=== PATIENT | male | born 1980 | race Caucasian/White ===

== ENCOUNTER 2016-05-30 05:09 | Emergency (ER) | payer BC ==
[~2016-05-30] VITALS: Ht 175.3 cm; Wt 108.9 kg
[2016-05-30 05:10] VITALS: BP 142/94; PULSE 64; RESP 18; TEMP 97.6; O2SAT 97
--- NOTE | 2016-05-30 05:10 | NUR ---
BROUGHT BACK TO BED #8 AND TRIAGED. REPORT GIVEN TO ANDREI
--- NOTE | 2016-05-30 05:15 | NUR ---
pt AAOx4 c/o right calf pain 09/28. pt reports slipping between two pipes yesterday causing leg to twist. woke up this morning in pain and difficulty walking. Addendum: 05/30/16 at 0600 by [facility] left calf, not right calf
--- NOTE | 2016-05-30 05:25 | NUR ---
ER Dr. Hernández at bedside examining patient.
[2016-05-30 06:10] VITALS: BP 121/87; PULSE 70; RESP 16; TEMP 98.5; O2SAT 98
--- NOTE | 2016-05-30 06:10 | NUR ---
Patient given written and verbal discharge instructions and verbalizes understanding. ER MD discussed with patient the results and treatment provided. Given copies of tests performed in ER. Patient in stable condition. ID arm band removed. Rx of ibuprofen given. Patient educated on pain management and to follow up with PMD. Pain Scale 0/10. Opportunity for questions provided and answered.
== END 2016-05-30 06:10 | disposition home or self-care (01) ==
LOC: SED 05:09
DX: S83.92XA Sprain of unspecified site of left knee, initial encounter (principal); S86.812A Strain of other muscle(s) and tendon(s) at lower leg level, left leg, initial encounter; W18.41XA Slipping, tripping and stumbling without falling due to stepping on object, initial encounter; Y93.89 Activity, other specified; Y92.89 Other specified places as the place of occurrence of the external cause; Y99.8 Other external cause status
CPT/HCPCS: 73564; 99284